=== PATIENT | male | born 1955 | race Caucasian/White ===

== ENCOUNTER 2017-11-30 07:43 | Day surgery (SDC) | payer BC ==
[~2017-11-30 07:43] MED LIST: Lactated Ringers 1,000 ML IV SCH
[2017-11-30] MEDS ORDERED: fentaNYL 100 MCG/2 ML SDV ONE (08:58)
[2017-11-30] MEDS ORDERED: Propofol 200 MG/20 ML SDV ONE ×2 (08:58→09:48)
--- NOTE | 2017-11-30 17:12 | OR ---
DATE OF SURGERY: 11/30/2017. REFERRING PROVIDER: Cely Lang PA-C. PRE-OPERATIVE DIAGNOSES: Screening colonoscopy. Patient's last colonoscopy in 2006 was normal. He does have a history of diverticulosis and diverticulitis. He also has history of previous colectomy done in 1986 for bleeding. POST-OPERATIVE DIAGNOSES: 1. Moderate diverticulosis, left greater than right. 2. Altered right colon and cecal anatomy, which I suspect is a previous site of colectomy. 3. Normal distal ileum. 4. Significantly enlarged prostate without any palpable nodules, but right- side of prostate seems slightly more prominent in size. PROCEDURE: Colonoscopy. SURGEON: Murphy Cook M.D. ANESTHESIA: Monitored anesthesia care. BOWEL PREP: Good. DESCRIPTION OF PROCEDURE: Bridger is a 62-year-old male, who was brought to the endoscopy suite after discussing risks and benefits of the procedure. Informed consent was obtained for conscious sedation and colonoscopy with or without biopsy and/or polypectomy. We also discussed possibility of missed lesions. Pre-procedure exam was unremarkable. IV, oxygen, and monitors were placed. The patient was placed in the left lateral decubitus position. Sedation was administered and a digital rectal exam was performed and was remarkable for a significantly enlarged prostate with slight prominence to the right side of the prostate. No palpable nodules. Colonoscope was passed in the rectum, slowly advanced all the way into the cecal area. Cecum was viewed and photographed. The patient did have altered right colon and cecal anatomy, which I suspect is a previous site of colectomy. Distal ileum was intubated and was normal in appearance. The colonoscope was slowly withdrawn and the mucosa was closed observed in a direct circumferential manner. The remainder of the ascending colon unremarkable except for some mild diverticulosis. Transverse colon, descending colon, and sigmoid colon revealed some moderate diverticulosis, more so on the left side. Retroflexion was performed and rectal mucosa was unremarkable. Scope was removed. The patient tolerated the procedure well. The patient was monitored until that baseline status. Discharge instructions were reviewed and the patient was discharged in good condition. COMPLICATIONS: None. TOTAL TIME: 16 minutes. ESTIMATED BLOOD LOSS: None. RECOMMENDATIONS/FOLLOW-UP: Recommend repeat screening colonoscopy in 10 years barring any interim change in symptoms or family history. I would like to kindly thank Cely Lang for this referral. DMB: 11/30/2017 10:15:11 MODL: 11/30/2017 17:04:01 /[id number]
== END 2017-11-30 11:10 | disposition home or self-care (01) ==
LOC: VM.SDS 07:43
PROVIDERS: ATTEND Family Medicine
DX: Z12.11 Encounter for screening for malignant neoplasm of colon (principal); K57.30 Diverticulosis of large intestine without perforation or abscess without bleeding; N40.0 Benign prostatic hyperplasia without lower urinary tract symptoms; I10 Essential (primary) hypertension; E66.9 Obesity, unspecified; Z68.32 Body mass index [BMI] 32.0-32.9, adult; Z79.899 Other long term (current) drug therapy; Z90.49 Acquired absence of other specified parts of digestive tract
CPT/HCPCS: J2704; J3010; J7120

== ENCOUNTER 2023-09-30 12:26 | Emergency (ER) | payer MEDICARE, BC ==
[2023-09-30] MEDS ORDERED: Sodium Chloride 0.9% 10 ML Syringe FLUSH PRN (13:11)
[2023-09-30 13:27] LABS: BASOPHILS PERCENT AUTO 0.3 % (0.2-1.2); EOSINOPHILS ABSOLUTE AUTO 0.1 x10^3/uL (0.0-0.5); EOSINOPHILS PERCENT AUTO 0.6 % (0.0-4.0); HEMATOCRIT 40.6 % (40.0-52.0); HEMOGLOBIN 14.3 g/dL (14.0-18.0); IMMATURE GRAN ABSOLUTE AUTO 0.02 x10^3/uL (0.00-0.07); LYMPHOCYTES ABSOLUTE AUTO 1.5 x10^3/uL (1.0-4.8); LYMPHOCYTES PERCENT AUTO 11.9 % (25.0-50.0); MEAN CORPUSCULAR HEMOGLOBIN 30.6 pg (26.0-32.0); MEAN CORPUSCULAR HGB CONC 35.2 g/dL (32.0-36.0); MEAN CORPUSCULAR VOLUME 86.9 fL (78.0-93.0); MONOCYTES ABSOLUTE AUTO 0.8 x10^3/uL (0.0-0.8); MONOCYTES PERCENT AUTO 6.4 % (2.0-11.0); NEUTROPHILS ABSOLUTE AUTO 10.1 x10^3/uL (1.8-7.7); NEUTROPHILS PERCENT AUTO 80.6 % (50.0-80.0); PLATELET COUNT,PLT 249 x10^3/uL (130-400); RED BLOOD CELL COUNT 4.67 x10^6/uL (4.5-6.0); WHITE BLOOD CELL COUNT,WBC 12.6 x10^3/uL (4.0-10.0)
[2023-09-30 13:45] LABS: INR 1.1 (0.9-1.1); PROTHROMBIN TIME 10.9 SEC (8.9-11.5); PTT,PARTIAL THROMBOPLSTIN TIME 27.6 SEC (21.9-33.8)
[2023-09-30 13:59] LABS: A/G RATIO 1.03; ALANINE AMINOTRANSFERASE,ALT 24 U/L (16-63); ALBUMIN 3.8 g/dL (3.4-5.0); ALKALINE PHOSPHATASE 69 U/L (46-116); ASPARTATE AMNIOTRANSFERASE,AST 25 U/L (15-37); BILIRUBIN TOTAL 0.7 mg/dL (0.2-1.0); BLOOD UREA NITROGEN,BUN 22 mg/dL (7-18); CALCIUM 9.5 mg/dL (8.5-10.1); CARBON DIOXIDE,CO2 27 mmol/L (21-32); CHLORIDE,CL 106 mmol/L (98-107); CREATININE 1.2 mg/dL (0.70-1.30); GLUCOSE RANDOM 190 mg/dL (70-99); MAGNESIUM 2.3 mg/dL (1.8-2.4); POTASSIUM,K 3.8 mmol/L (3.5-5.1); PROTEIN TOTAL,TP 7.5 g/dL (6.4-8.2); SODIUM,NA 142 mmol/L (136-145); TSH ULTRASENSITIVE 0.709 uIU/mL (0.358-3.74)
[2023-09-30 14:00] LABS: ANION GAP 12.8 mmol/L (5-15); ESTIMATED GFR 65 mL/min (>=60)
== END 2023-09-30 15:46 | disposition short-term general hospital (02) ==
LOC: VM.ED 12:26
DX: I44.2 Atrioventricular block, complete (principal); I10 Essential (primary) hypertension; E66.9 Obesity, unspecified; Z79.82 Long term (current) use of aspirin; Z79.899 Other long term (current) drug therapy
CPT/HCPCS: 80053; 83735; 84443; 84484; 85025; 85610; 85730; 93005; 99285